=== PATIENT | male | born 1965 | race African-American/Black ===

== ENCOUNTER 2016-11-06 03:10 | Emergency (ER) | payer OTHER ==
[~2016-11-06] VITALS: Ht 185.4 cm; Wt 102.1 kg
[2016-11-06 03:20] VITALS: BP 152/95
--- NOTE | 2016-11-06 03:39 | ED INFLUENZA/URI COMPLAINT ---
History of Present Illness General Chief Complaint: General Adult Stated Complaint: " I HAVE A COLD MY BODY IS SORE ALL OVER" PER PT Source: patient, family Exam Limitations: no limitations Vital Signs & Intake/Output Vital Signs & Intake/Output Vital Signs Date Time Temp Pulse Resp B/P Pulse O2 O2 Flow FiO2 Ox Delivery Rate 11/06 0414 100.5 11/06 0336 95 Room Air 11/06 0320 100.5 86 18 152/95 96 Room Air Allergies Coded Allergies: No Known Allergies (11/06/16) Reconcile Medications Ibuprofen 800 MG TABLET 1 TAB PO TID PRN PAIN Oseltamivir Phosphate (Tamiflu) 75 MG CAPSULE 1 CAP PO BID INFLUENZA Triage Note: C/O HEAD CONGESTION,BODY ACHES,CAN'T SLEEP, FEELS LIKE LT SIDE OF BODY IS BURNING Triage Nurses Notes Reviewed? yes Onset: Abrupt Duration: day(s): (3) Timing: recent history Severity: moderate No Modifying Factors: none Associated Symptoms: fever/chills, muscle aches, nasal congestion, sore throat HPI: This is a 51-year-old male who presents to the ER with chief complaint of body aches, fever, headache and sore throat. He reports some nasal congestion. He states symptoms started on Saturday. Positive sick contacts at work. He states that somebody was out last week for influenza. Denies any abdominal pain nausea or vomiting. No recent travel. Past History Travel History Traveled to [place] past 21 day No Medical History Any Pertinent Medical History? see below for history Neurological: NONE EENT: NONE Cardiovascular: NONE Respiratory: NONE Gastrointestinal: HEP C Hepatic: NONE Renal: NONE Musculoskeletal: NONE Psychiatric: NONE Endocrine: NONE Blood Disorders: NONE Cancer(s): NONE Surgical History Surgical History: non-contributory Psychosocial History What is your primary language Moroccan Tobacco Use: Never used Family History Hx Contributory? No Review of Systems Review of Systems Constitutional: Reports: chills, fever. EENTM: Reports: nasal congestion, throat pain. Respiratory: Denies: cough, short of breath, sputum production. Cardiovascular: Denies: chest pain, palpitations. GI: Denies: abdominal pain. Genitourinary: Reports: no symptoms. Musculoskeletal: Reports: no symptoms. Skin: Reports: no symptoms. Neurological/Psychological: Reports: no symptoms. Hematologic/Endocrine: Denies: bruising, bleeding, polyuria, polydipsia. Immunologic/Allergic: Denies: splenectomy. All Other Systems: Reviewed and Negative Physical Exam Physical Exam General Appearance: well developed/nourished, alert, awake, mild distress Head: atraumatic, normal appearance Eyes: Bilateral: normal appearance, PERRL, EOMI. Ears, Nose, Throat: normal ENT inspection, moist mucous membrane, pharyngeal erythema Neck: normal inspection, supple, full range of motion Respiratory: normal breath sounds, chest non-tender, no respiratory distress Cardiovascular: regular rate/rhythm Peripheral Pulses: 2+ radial (R), 2+ radial (L) Gastrointestinal: normal bowel sounds, soft, non-tender Extremities: normal inspection, normal capillary refill, normal range of motion, no edema Neurologic/Psych: no motor/sensory deficits, awake, alert, oriented x 3, normal mood/affect Skin: intact, normal color, warm/dry Core Measures Severe Sepsis Present: No Septic Shock Present: No Progress Differential Diagnosis: URI, INFLUENZA, PHARYNGITIS Plan of Care: Orders Procedure Date/time Status THROAT CULTURE W/QUICK STREP 11/06 343 Active URINALYSIS 11/06 343 Complete RAPID VIRAL INFLUENZA A 11/06 337 Complete Laboratory Tests 11/06/16 0350: Urine Color YEL, Urine Clarity CLEAR, Urine pH 8.0, Ur Specific Belcher 1.015, Urine Protein NEG, Urine Ketones NEG, Urine Nitrite NEG, Urine Bilirubin NEG, Urine Urobilinogen 1.0, Ur Leukocyte Esterase NEG, Ur Microscopic EXAM NOT REQUIRED, Urine Hemoglobin NEG, Urine Glucose NEG Initial ED EKG: none Departure Departure Time of Disposition: 441 Disposition: HOME OR SELF CARE Condition: Stable Clinical Impression Primary Impression: Influenza Referrals: NEAL ESQUEDA MD (PCP/Family) Additional Instructions: Take the Tamiflu and IV Zofran as directed. Your prescriptions are at [facility] in [place]. Please follow-up with your doctor in the office. Return as needed. Departure Forms: Customer Survey General Discharge Information Prescriptions: Current Visit Scripts Oseltamivir Phosphate (Tamiflu) 1 CAP PO BID #10 CAP Ibuprofen 1 TAB PO TID PRN PAIN #20 TAB
[2016-11-06] MEDS ORDERED: IBUPROFEN800 M1 PO (04:43)
[2016-11-06] MEDS ORDERED: TAMIFLU75 M1 PO (04:43)
== END 2016-11-06 04:50 ==
LOC: ERH 03:10
DX: J11.1 Influenza due to unidentified influenza virus with other respiratory manifestations (principal); R51 Headache
CPT/HCPCS: 81003; 87804; 87804-59

== ENCOUNTER 2017-10-16 21:20 | Emergency (ER) | payer OTHER ==
[~2017-10-16] VITALS: Ht 185.4 cm; Wt 99.8 kg
[~2017-10-16 21:20] MED LIST: IBUPROFEN800 M1 PO; TAMIFLU75 M1 PO
--- NOTE | 2017-10-16 22:18 | RADIOLOGY REPORT ---
EXAMINATION: LEFT HAND 3 VIEWS CLINICAL INFORMATION: Left hand pain following trauma. COMPARISON: None. TECHNIQUE: PA, lateral, oblique views of the left hand were obtained. FINDINGS: There are no fractures or dislocations. There is no significant soft tissue swelling. IMPRESSION: Unremarkable left hand radiographs.
--- NOTE | 2017-10-16 22:30 | ED HAND/WRIST INJURY COMPLAINT ---
History of Present Illness General Chief Complaint: Hand or Wrist Injury Stated Complaint: LEFT HAND PAIN Source: patient, old records Exam Limitations: no limitations Vital Signs & Intake/Output Vital Signs & Intake/Output Vital Signs Date Time Temp Pulse Resp B/P B/P Pulse O2 O2 Flow FiO2 Mean Ox Delivery Rate 10/16 2241 97.0 78 18 127/79 97 Room Air 10/167 Room Air 10/164 96.8 85 18 131/86 98 Room Air ED Intake and Output 10/17 0000 10/16 1200 Intake Total 0 Output Total Balance 0 Intake, Oral 0 Patient 220 lb Weight Weight Reported by Patient Measurement Method Allergies Coded Allergies: No Known Allergies (11/06/16) Triage Note: PT TO ER C/C LEFT HAND PAIN AFTER HAND GOT CAUGHT IN A [employer] DOOR. Triage Nurses Notes Reviewed? yes Occurred: this evening Duration: hour(s):, constant, continues in ED Timing: recent history Injury Environment: [facility] Severity: mild, moderate Pain/Injury Location: Left: Hand. Context: blow Method of Injury: direct blow Modifying Factors: Improves With: cold therapy. Worsens With: movement. Associated Symptoms: numbness, stiffness HPI: Several hours prior to admission patient reports being struck at the left hand by a door that closed prematurely striking the dorsum of his left hand. He complains of pain mild to moderate radiating to his rest associated with tingling of his fourth and fifth digits. He denies other injury fever chills nausea vomiting diarrhea abdominal pain chest pain shortness breath headache dysuria rash bleeding. He is right-hand dominant. Past History Travel History Traveled to [place] past 21 day No Medical History Any Pertinent Medical History? see below for history Neurological: NONE EENT: NONE Cardiovascular: NONE Respiratory: NONE Gastrointestinal: HEP C Hepatic: NONE Renal: NONE Musculoskeletal: NONE Psychiatric: NONE Endocrine: NONE Blood Disorders: NONE Cancer(s): NONE Surgical History Surgical History: non-contributory Psychosocial History What is your primary language Latvian Tobacco Use: Current Daily Use Daily Tobacco Use Amount/Type: => 5 Cigarettes daily Family History Hx Contributory? No Review of Systems Review of Systems Constitutional: Reports: no symptoms. EENTM: Reports: no symptoms. Respiratory: Reports: no symptoms. Cardiovascular: Reports: no symptoms. GI: Reports: no symptoms. Genitourinary: Reports: no symptoms. Musculoskeletal: Reports: see HPI, joint pain. Skin: Reports: no symptoms. Neurological/Psychological: Reports: no symptoms. Hematologic/Endocrine: Reports: no symptoms. Immunologic/Allergic: Reports: no symptoms. All Other Systems: Reviewed and Negative Physical Exam Physical Exam General Appearance: well developed/nourished, alert, awake, anxious, mild distress Head: atraumatic, normal appearance Eyes: Bilateral: PERRL, EOMI. Ears, Nose, Throat: normal pharynx, normal ENT inspection, hearing grossly normal Neck: normal inspection, supple Cardiovascular/Respiratory: normal breath sounds, regular rate/rhythm Back: normal inspection Shoulder Left: normal range of motion, normal inspection Shoulder Right: normal range of motion, normal inspection Elbow Left: normal range of motion, normal inspection Elbow Right: normal range of motion, normal inspection Forearm Left: normal range of motion, normal inspection Forearm Right: normal range of motion, normal inspection Wrist Left: normal range of motion, normal inspection Wrist Right: normal range of motion, normal inspection Hand Left: normal inspection, normal range of motion, tender (soft tissue) Hand Right: normal inspection, normal range of motion Reflexes: 2+: bicep (R), bicep (L). Neurologic/Tendon: normal sensation, normal motor functions, normal tendon functions Skin: intact, normal color, warm/dry Lymphatic: no anterior cervical mario Progress Differential Diagnosis: contusion, fracture Plan of Care: Orders Procedure Date/time Status Durable Medical Equipment 10/16 2227 Active Diagnostic Imaging: Viewed by Me: Radiology Read. Discussed w/RAD: Radiology Read. Radiology Impression: no acute abnormality, no fracture, no dislocation Comments: Pain and numbness improved after ice bag application Departure Departure Time of Disposition: 2227 Disposition: HOME OR SELF CARE Condition: Stable Clinical Impression Primary Impression: Contusion of left hand, initial encounter Referrals: Ashok Samano MD (PCP/Family) Departure Forms: Customer Survey General Discharge Information RELEASE- WORK Procedures Splinting Location: L hand/wrist Manual Alignment Performed: No Pre-Made Type: velcro Splint: wrist Splint Applied By: splint applied by other Pre-Proc Neuro Vasc Exam: normal Post-Proc Neuro Vasc Exam: normal
[2017-10-16 22:41] VITALS: BP 127/79
== END 2017-10-16 22:42 ==
LOC: ERH 21:20
DX: S60.222A Contusion of left hand, initial encounter (principal); W22.8XXA Striking against or struck by other objects, initial encounter; Y93.89 Activity, other specified; Y92.511 Restaurant or cafe as the place of occurrence of the external cause
CPT/HCPCS: 73130-LT